=== PATIENT | female | born 1940 | race Caucasian/White ===

== ENCOUNTER 2019-09-12 10:40 | Inpatient (IN) | payer SELFPAY ==
[~2019-09-12] VITALS: Ht 160 cm; Wt 74.8 kg
[2019-09-12] MEDS ORDERED: MORPHINE SULFATE 4 MG/ML CPJ (NOT FOR IM USE) IV STA (11:00)
[2019-09-12] MEDS ORDERED: ONDANSETRON HCL 4MG/2ML INJ IV STA (11:00)
[2019-09-12 12:04] LABS: HEMATOCRIT. 38.1 % (36.0-48.0); HEMOGLOBIN. 12.8 g/dL (12.0-16.0); MEAN CORPUSCULAR HEMOGLOBIN 28.5 pg (28.0-32.0); MEAN PLATELET VOLUME 9.4 fl (7.4-10.4); PLATELET 192 x1000/uL (130-400); RED BLOOD CELL COUNT 4.48 mill/uL (4.2-5.4); RED CELL DISTRIBUTION WIDTH 13.2 % (11.6-14.6)
[2019-09-12 12:09] LABS: CLARITY URINE CLEAR (CLEAR); COLOR URINE YELLOW (YELLOW); KETONES URINE NEGATIVE (NEGATIVE); LEUKOCYTE ESTERASE URINE NEGATIVE (NEGATIVE); NITRITE URINE NEGATIVE (NEGATIVE); OCCULT BLOOD URINE NEGATIVE (NEGATIVE); PROTEIN URINE NEGATIVE (NEGATIVE); SPECIFIC GRAVITY URINE 1.004 (1.005-1.030); UROBILINOGEN URINE 0.2 E.U./dL (0.2-1.0)
[2019-09-12 12:10] LABS: CHLORIDE 107 mEq/L (98-107)
[2019-09-12 12:59] LABS: PLATELET ESTIMATE NORMAL
[2019-09-12] MEDS ORDERED: DIAZEPAM 2 MG TABLET PO ONE (13:45)
[2019-09-12] MEDS ORDERED: DIAZEPAM 5 MG TABLET PO NR (14:00)
[2019-09-12] MEDS ORDERED: IOHEXOL-350 100 ML BOTTLE ONE (15:35)
[2019-09-12 18:59] VITALS: BP 166/69
[2019-09-12 19:45] VITALS: BP 158/69
[2019-09-12 20:00] VITALS: BP 164/102
[2019-09-12 22:00] VITALS: BP 154/70
[2019-09-12] MEDS ORDERED: GUAIFENESIN 200MG/10ML SUGAR FREE UDC PO PRN (23:45)
[2019-09-12] MEDS ORDERED: MORPHINE SULFATE 2 MG/ML CPJ (NOT FOR IM USE) IV PRN (23:45)
[2019-09-12] MEDS ORDERED: DOCUSATE SODIUM 100MG CAPSULE PO PRN (23:45)
[2019-09-12] MEDS ORDERED: IPRATROPIUM/ALBUTEROL 0.5-3(2.5)MG/3ML NEB NEB PRN (23:45)
[2019-09-12] MEDS ORDERED: ONDANSETRON HCL 4MG/2ML INJ IV PRN (23:45)
[2019-09-12] MEDS ORDERED: ACETAMINOPHEN 325MG TABLET PO PRN (23:45)
[2019-09-13] VITALS (12 sets, daily range): BP systolic 119–186; BP diastolic 60–113
[2019-09-13 07:00] LABS: CHLORIDE 105 mEq/L (98-107)
[2019-09-13 07:06] LABS: LDL CHOLESTEROL 151 mg/dL (5-100)
[2019-09-13 07:08] LABS: CREATINE KINASE 101 IU/L (26-192)
[2019-09-13 07:09] LABS: HDL CHOLESTEROL 38 mg/dL (40-59)
[2019-09-13 07:10] LABS: CREATINE KINASE MB FRACTION 1.1 ng/mL (0.5-3.6)
[2019-09-13 07:13] LABS: HEMATOCRIT. 35.6 % (36.0-48.0); HEMOGLOBIN. 12.1 g/dL (12.0-16.0); MEAN CORPUSCULAR VOLUME 85.3 fL (81.0-99.0); MEAN PLATELET VOLUME 9.5 fl (7.4-10.4); PLATELET 193 x1000/uL (130-400); RED BLOOD CELL COUNT 4.17 mill/uL (4.2-5.4); RED CELL DISTRIBUTION WIDTH 13.3 % (11.6-14.6)
[2019-09-13] MEDS ORDERED: PNEUMOCOCCAL 23-VAL P-SAC VAC 0.5 ML IM ONE (09:00)
[2019-09-13 09:20] LABS: *COCAINE SCREEN URINE NEGATIVE (NEGATIVE); METHADONE URINE SCREEN NEGATIVE (NEGATIVE); OPIATES URINE SCREEN NEGATIVE (NEGATIVE)
[2019-09-13 09:21] LABS: *AMPHETAMINES SCREEN URINE NEGATIVE (NEGATIVE); *BARBITURATES SCREEN URINE NEGATIVE (NEGATIVE); *BENZODIAZEPINES SCREEN URINE NEGATIVE (NEGATIVE); CANNABINOID URINE SCREEN NEGATIVE (NEGATIVE); PHENCYCLIDINE URINE SCREEN NEGATIVE (NEGATIVE)
[2019-09-13] MEDS: HEPARIN 5000 UNITS/ML VIAL SUBCUT SCH ×2 (10:11→21:22)
[2019-09-13 14:11] LABS: ATYPICAL LYMPHOCYTES 1; PLATELET ESTIMATE NORMAL
[2019-09-13] MEDS: CLONIDINE 0.1MG TABLET PO PRN (14:13)
[2019-09-13 16:20] LABS: CREATINE KINASE 129 IU/L (26-192)
[2019-09-13 16:21] LABS: CREATINE KINASE MB FRACTION 1.4 ng/mL (0.5-3.6)
[2019-09-13] MEDS ORDERED: NAPR220T66 PO (17:12)
[2019-09-13] MEDS ORDERED: HYDR12.54 PO (17:12)
[2019-09-13] MEDS ORDERED: ASPI-1079 PO (17:12)
[2019-09-14] VITALS (9 sets, daily range): BP systolic 129–167; BP diastolic 56–86
[2019-09-14] MEDS: HYDROCODONE/ACETAMINOPHEN 5/325MG TABLET PO PRN ×2 (02:43→12:29)
[2019-09-14] MEDS: HEPARIN 5000 UNITS/ML VIAL SUBCUT SCH (10:29)
[2019-09-14] MEDS ORDERED: HYDR-4001 PO (12:20)
[2019-09-14] MEDS: CLONIDINE 0.1MG TABLET PO PRN (13:43)
== END 2019-09-14 13:52 | disposition home or self-care (01) | DRG 347 ==
LOC: ER 10:40 → EDBEDREQ 13:38 → ENRESERV 17:23 → 3WST 18:20
PROVIDERS: ADMIT Internal Medicine; ATTEND Internal Medicine
DX: M47.22 Other spondylosis with radiculopathy, cervical region (principal); M48.02 Spinal stenosis, cervical region; E78.5 Hyperlipidemia, unspecified; I10 Essential (primary) hypertension; I16.0 Hypertensive urgency; G89.29 Other chronic pain; M54.9 Dorsalgia, unspecified; E03.9 Hypothyroidism, unspecified
CPT/HCPCS: 36415; 71045; 71275; 72141; 74174; 80048; 80053; 80061; 80305; 81003; 82550; 82553; 83036; 83735; 83880; 84439; 84443; 84481; 84484; 85025; 90732; 93005; 97110; 97162; 97166; 97535; 99291; J1644; J2270; J2405; Q9967